=== PATIENT | male | born 1965 | race Caucasian/White ===

== ENCOUNTER 2018-09-26 13:04 | Observation (INO) ==
--- NOTE | 2018-09-26 13:26 | Emergency Department Note ---
Disposition Clinical Impression: Chest pain Disposition: Admitted As Inpatient Condition: Good Referrals: Estevan Petersen MD [Primary Care Provider] - Chest Pain HPI - General Chief Complaint: ED Chest Pain Stated Complaint: chest pain Time Seen by Provider: 09/26/18 13:15 Source: patient, EMS Mode of arrival: ambulatory Limitations: no limitations Vital Signs Reviewed: Yes Nursing Notes Reviewed: Yes - History of Present Illness HPI Narrative: Patient was at a home making arrangements for his best friend and started having hard sharp chest pains in his left chest. Dropped him to his knees. He had 3 of these episodes and then decided come to the hospital. He always has shortness of breath this is no different than normal. The chest pain is something completely that he has not had before. 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 Ramon at [place]. He is currently resting pain-free. 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 Denies: nausea, vomiting, syncope, palpitations - Related Data Home Medications Medication Instructions Recorded Confirmed Atorvastatin Calcium [Lipitor] 80 mg PO DAILY 03/11/18 09/24/18 Gabapentin [Neurontin] 300 mg PO HS 03/11/18 09/24/18 Metoprolol Succinate [Toprol Xl] 100 mg PO DAILY 03/11/18 09/24/18 raNITIdine HCl [Zantac] 150 mg PO BID 03/11/18 09/24/18 Modafinil [Provigil] 200 mg PO DAILY 09/01/18 09/24/18 Fluticasone/Salmeterol [Advair Hfa 12 gm IH BID 09/24/18 09/24/18 115-21 Mcg Inhaler] Sildenafil Citrate [Revatio] 20 mg PO 09/24/18 Dextroamphetamine/Amphetamine 10 mg PO BID 09/26/18 09/26/18 [Dextroamp-Amphetamin 10 mg Tab] Losartan/Hydrochlorothiazide 1 each PO BID 09/26/18 09/26/18 [Losartan-Hctz 50-12.5 mg Tab] Previous Rx's Medication Instructions Recorded Cyclobenzaprine [Flexeril] 10 mg PO TID PRN #15 tablet 11/25/15 Naproxen [Naprosyn] 500 mg PO BID PRN #15 tablet 01/03/17 Allergies Allergy/AdvReac Type Severity Reaction Status Date / Time No Known Allergies Allergy Verified 11/25/15 00:04 All systems ED: reviewed and negative except as stated. Review of Systems: As Per HPI Constitutional: Denies: fever, chills, weakness, weight change Eyes: Denies: eye pain, eye discharge, vision change ENT ED: Denies: ear pain, throat pain, dental pain, hearing loss, epistaxis, congestion, dysphagia Cardiovascular: Reports: as per HPI, chest pain Respiratory: Reports: as per HPI, dyspnea. Denies: cough, wheezes, hemoptysis, stridor Gastrointestinal: Denies: abdominal pain, nausea, vomiting, diarrhea, constipation, hematemesis, melena, hematochezia Genitourinary: Denies: urgency, dysuria, frequency, hematuria Musculoskeletal: Denies: back pain, neck pain, arthralgia, myalgia Integumentary: Denies: rash, abrasion, lesions Neurological: Denies: headache, weakness, numbness, paresthesias, confusion, abnormal gait, vertigo Psychiatric: Denies: anxiety, depression, suicidal thoughts, homicidal thoughts, auditory hallucinations, visual hallucinations Endocrine: Denies: fatigue Hematological/Lymphatic: Denies: easy bleeding, easy bruising Allergic/Immunologic: Denies: facial swelling, urticaria Chest Pain PMH - Past Medical History Medical history: Reports: asthma, COPD, GERD, hyperlipidemia, hypertension Psychiatric history: Reports: anxiety, depression - Social History Smoking Status: Former smoker Alcohol use: Reports: rarely Drug use: Reports: none Physical Exam - General Limitations: no limitations General appearance: alert, in no apparent distress - Head Head exam: atraumatic, normocephalic, normal inspection - Eye Eye exam: Present: normal appearance, PERRL, EOMI - ENT ENT exam: normal exam, normal oropharynx, mucous membranes moist - Neck Neck exam: Present: normal inspection, full ROM, trachea midline - Chest Chest inspection: Present: normal inspection, symmetric chest wall rise - Respiratory Respiratory exam: Present: normal lung sounds bilaterally - Cardiovascular Cardiovascular exam: Present: regular rate, normal rhythm, normal heart sounds - Abdominal Exam Abdominal exam: Present: soft, Non-Tender, normal bowel sounds - Extremities Exam Extremities exam: Present: normal inspection, full ROM. Absent: tenderness, pedal edema - Back Exam Back exam: Present: normal inspection, full ROM. Absent: tenderness - Neurological Exam Neurological exam: Present: alert, oriented X3 - Psychiatric Psychiatric exam: Present: normal affect, normal mood - Skin Skin exam: Present: warm, dry, intact Course Vital Signs Temperature 98.2 F 09/26/18 13:08 Pulse Rate 100 09/26/18 13:08 Respiratory Rate 16 09/26/18 13:08 Blood Pressure 121/82 09/26/18 13:08 O2 Sat by Pulse Oximetry 97 09/26/18 13:08 Temperature 98.2 F 09/26/18 13:08 Pulse Rate 100 09/26/18 13:08 Respiratory Rate 16 09/26/18 13:08 Blood Pressure 121/82 09/26/18 13:08 O2 Sat by Pulse Oximetry 97 09/26/18 13:08 Oxygen Delivery Oxygen Delivery Room Air Chest Pain - MDM Narrative Medical decision making narrative: I reviewed the patient's medication list Case was discussed with Dr. Contreras who has graciously accepted admission of the patient. - Lab Data Lab results reviewed: Yes I reviewed the patient's lab results. - Radiology Data Radiology results reviewed: Yes I reviewed the patient's radiology results. - EKG Data EKG attestation: Yes I reviewed and interpreted this EKG. EKG results narrative: EKG shows a sinus rhythm with rate of 99 bpm. TN interval 155 ms. QS duration 80 ms QT and QTC intervals 344 and 4 and 42 ms respectively. QRS duration is 70 degrees. There is no acute ischemic changes appreciated.
[2018-09-26 13:38] LABS: Basophils % 0.1 %; Eosinophils % 0.6 %; Hematocrit 40.8 % (37.5-50.1); Hemoglobin 13.5 g/dL (12.9-16.9); Immature Granulocytes % 0.4 % (0-4); Lymphocytes # 1.8 K/mcL (0.6-4.6); Lymphocytes % 25.1 %; Mean Corpuscular HGB Conc 33.1 g/dL (31.6-35.5); Mean Corpuscular Hemoglobin 29.5 pg (28.0-33.3); Mean Corpuscular Volume 89.1 fL (83.0-100.0); Mean Platelet Volume 9.4 fL (9.4-12.4); Monocytes # 0.6 K/mcL (0.0-1.3); Monocytes % 8.5 %; Neutrophils # 4.7 K/mcL (1.6-8.9); Platelet Count 329 K/mcL (140-400); Red Blood Count 4.58 M/mcL (4.19-5.50); Red Cell Distribution Width 12.4 % (11.5-14.5); Segmented Neutrophils % 65.3 %
[2018-09-26 13:43] LABS: INR 1.1; Prothrombin Time 12.1 Seconds (9.4-12.1)
[2018-09-26 13:46] LABS: Activated Partial Thrombo Time 32.8 Seconds (26.0-36.0)
[2018-09-26 13:54] LABS: BUN/Creatinine Ratio 14 (6-26); Blood Urea Nitrogen 13 mg/dL (6-20); Calcium 8.9 mg/dL (8.6-10.3); Carbon Dioxide 27 mEq/L (23-29); Chloride 102 mEq/L (98-107); Glucose 102 mg/dL (70-105); Osmolality,Calculated 282 (280-300); Potassium 3.7 mEq/L (3.5-5.1); Sodium 136 mEq/L (136-145); Troponin I < 0.03 ng/mL (< 0.04); eGFR For Non-African Americans > 60 (> 60)
[2018-09-26] MEDS ORDERED: Naloxone 0.4 MG/ML INJ IVP PRN (15:08)
[2018-09-26] MEDS ORDERED: 0.9 % Sodium Chloride 1,000 ML IVC SCH (15:08)
[2018-09-26] MEDS: DEXTROAMPHETAMINE PO SCH (15:56)
[2018-09-26] MEDS: AMPHETAMINE PO SCH (15:56)
[2018-09-26] MEDS ORDERED: Budesonide/Formoterol 80/4.5 MDI IH ONE (19:15)
[2018-09-26] MEDS: Budesonide/Formoterol 80/4.5 MDI IH SCH (19:36)
[2018-09-26] MEDS: Famotidine 20 MG TABLET PO SCH (20:40)
[2018-09-26] MEDS: Losartan/HCTZ 50-12.5 TABLET PO SCH (20:40)
[2018-09-26] MEDS ORDERED: Gabapentin 300 MG CAPSULE PO SCH (21:00)
[2018-09-27 03:16] LABS: Basophils % 0.5 %; Eosinophils # 0.1 K/mcL (0.0-0.6); Eosinophils % 1.8 %; Hemoglobin 13.4 g/dL (12.9-16.9); Immature Granulocytes % 0.3 % (0-4); Lymphocytes # 2.1 K/mcL (0.6-4.6); Lymphocytes % 34.4 %; Mean Corpuscular HGB Conc 32.7 g/dL (31.6-35.5); Mean Corpuscular Hemoglobin 29.5 pg (28.0-33.3); Mean Corpuscular Volume 90.1 fL (83.0-100.0); Mean Platelet Volume 9.1 fL (9.4-12.4); Monocytes # 0.6 K/mcL (0.0-1.3); Monocytes % 9.7 %; Neutrophils # 3.3 K/mcL (1.6-8.9); Platelet Count 329 K/mcL (140-400); Red Blood Count 4.55 M/mcL (4.19-5.50); Red Cell Distribution Width 12.5 % (11.5-14.5); Segmented Neutrophils % 53.3 %
[2018-09-27 03:32] LABS: BUN/Creatinine Ratio 14 (6-26); Blood Urea Nitrogen 15 mg/dL (6-20); Calcium 9.2 mg/dL (8.6-10.3); Carbon Dioxide 29 mEq/L (23-29); Chloride 100 mEq/L (98-107); Glucose 114 mg/dL (70-105); Osmolality,Calculated 286 (280-300); Potassium 4.2 mEq/L (3.5-5.1); Sodium 137 mEq/L (136-145); eGFR For Non-African Americans > 60 (> 60)
[2018-09-27 05:40] VITALS: BP 122/80
[2018-09-27] MEDS ORDERED: Metoprolol XL (24 HR) Succ 50 MG TAB.ER.24H PO SCH (09:00)
[2018-09-27] MEDS: AMPHETAMINE PO SCH (09:45)
[2018-09-27] MEDS: DEXTROAMPHETAMINE PO SCH (09:45)
[2018-09-27] MEDS: Famotidine 20 MG TABLET PO SCH (09:54)
[2018-09-27] MEDS: Losartan/HCTZ 50-12.5 TABLET PO SCH (09:54)
[2018-09-27] MEDS: Budesonide/Formoterol 80/4.5 MDI IH SCH (09:54)
--- NOTE | 2018-09-27 12:19 | Internal Med History&Physical ---
Date of Encounter: 09/27/18 Time of Encounter: 12:17 Assessment and Plan (1) Chest pain Current visit: Yes Status: Acute Patient does have history of cardiovascular disease. Will admit patient for observation and serial troponin and telemetry monitoring. We will continue his cardiac medications. Including statin and beta perfecto. 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 Qualifiers: Chest pain type: chest pain due to myocardial ischemia Ischemic chest pain type: unspecified angina pectoris type Qualified Code(s): I25.9 - Chronic ischemic heart disease, unspecified Internal Medicine - H&P: HPI Chief complaint: chest pain Admitted From: Home History of present illness: Mr. Ann is a 53 year old male who was admitted through emergency department with transient sharp substernal chest pain. He reported 3 episodes of this. He was under stress having both his ex- and his friend recently and he was making arrangements. He also drinks a lot of Pepsi and states he had a lot of caffeine . He currently denies chest pain or diaphoresis there was no nausea or vomiting. He does have a cardiovascular history including what he tells me is medically managed coronary disease and he does follow with cardiology. He states that he has had high blood pressure for some time. He has been on a statin and beta perfecto as an outpatient. His initial troponin in the ED was negative. He denies headache. He admits to poor eating habits discussed Physical Exam - General Limitations: no limitations General appearance: alert, in no apparent distress talkative Multiple multicolored tattoos - Head Head exam: atraumatic, normocephalic, normal inspection - Eye Eye exam: Present: normal appearance, PERRL, EOMI - ENT ENT exam: normal exam, normal oropharynx, mucous membranes moist - Neck Neck exam: Present: normal inspection, full ROM, trachea midline - Chest Chest inspection: Present: normal inspection, symmetric chest wall rise - Respiratory Respiratory exam: Present: normal lung sounds bilaterally - Cardiovascular Cardiovascular exam: Present: regular rate, normal rhythm, normal heart sounds - Abdominal Exam Abdominal exam: Present: soft, Non-Tender, normal bowel sounds - Extremities Exam Extremities exam: Present: normal inspection, full ROM. Absent: tenderness, pedal edema - Back Exam Back exam: Present: normal inspection, full ROM. Absent: tenderness - Neurological Exam Neurological exam: Present: alert, oriented X3 - Psychiatric Psychiatric exam: Present: normal affect, normal mood - Skin Skin exam: Present: warm, dry, intact Past Med Surg Social Fam HX - Past Medical History Medical history: asthma, COPD, GERD, hyperlipidemia, hypertension Additional medical history: buldging disc, sleep apnea Psychiatric history: anxiety, depression - Social History Smoking Status: Former smoker Smokeless Tobacco Status: No Alcohol use: rarely Drug use: none Internal Medicine - H&P: Meds Cyclobenzaprine [Flexeril] 10 mg PO TID PRN #15 tablet 11/25/15 [Rx] Naproxen [Naprosyn] 500 mg PO BID PRN #15 tablet 01/03/17 [Rx] Atorvastatin Calcium [Lipitor] 80 mg PO DAILY 03/11/18 [History] Gabapentin [Neurontin] 300 mg PO HS 03/11/18 [History] Metoprolol Succinate [Toprol Xl] 100 mg PO DAILY 03/11/18 [History] raNITIdine HCl [Zantac] 150 mg PO BID 03/11/18 [History] Modafinil [Provigil] 200 mg PO DAILY 09/01/18 [History] Fluticasone/Salmeterol [Advair Hfa 115-21 Mcg Inhaler] 12 gm IH BID 09/24/18 [History] Sildenafil Citrate [Revatio] 100 mg PO PRN PRN 09/24/18 [History] Dextroamphetamine/Amphetamine [Dextroamp-Amphetamin 10 mg Tab] 10 mg PO BID 09/26/18 [History] Losartan/Hydrochlorothiazide [Losartan-Hctz 50-12.5 mg Tab] 1 each PO BID 09/26/18 [History] Allergy/AdvReac Type Severity Reaction Status Date / Time No Known Allergies Allergy Verified 11/25/15 00:04 All Systems PM: A 10-system review of systems was performed and is negative for pertinent findings except as documented above in the HPI. - Constitutional Vitals: Temp Pulse Resp BP Pulse Ox 97.6 F 86 17 122/80 99 09/27/18 05:39 09/27/18 05:39 09/27/18 05:39 09/27/18 05:39 09/27/18 05:39 Internal Med - H&P Results - Labs CBC & Chem 7: 09/27/18 03:11 09/27/18 03:11 Labs: Short CBC 09/26/18 09/27/18 Range/Units 13:29 03:11 WBC 7.1 6.1 (4.3-11.1) K/mcL Hgb 13.5 13.4 (12.9-16.9) g/dL Hct 40.8 41.0 (37.5-50.1) % Plt Count 329 329 (140-400) K/mcL Neutrophils # 4.7 3.3 (1.6-8.9) K/mcL BMP 09/26/18 09/27/18 13:29 03:11 Sodium 136 137 Potassium 3.7 4.2 Chloride 102 100 Carbon Dioxide 27 29 BUN 13 15 Creatinine 0.96 1.09 Glucose 102 114 H Calcium 8.9 9.2 Cardiac Enzymes 09/26/18 09/26/18 09/26/18 Range/Units 13:29 16:05 21:01 Troponin I < 0.03 < 0.03 < 0.03 (< 0.04) ng/mL 09/27/18 Range/Units 03:11 Troponin I < 0.03 (< 0.04) ng/mL - Impressions ITS Impressions Chest X-Ray 09/26/18 13:14 IMPRESSION: No acute process. D/ / Rocael Carr MD / Rocael Carr MD Interpreting Provider: Rocael Carr MD
--- NOTE | 2018-09-27 12:29 | Discharge Summary ---
- NOTES TO OUTPATIENT PROVIDER Notes to Outpatient Provider: Patient advised to see cardiology's appointment is tomorrow. He is advised to get cardiac stress testing or further cardiac evaluations as directed by cardiology. He is advised to maintain compliance with medications including statin and beta perfecto. Advised to reduce caffeine or other cardiac irritants. He was given a work note to be off work until cleared by cardiology. Orders not resulted at time of discharge: Pending orders 09/26/18 13:14 ECG 12 lead ECG [ECG] Stat 09/27/18 06:00 ECG 12 lead ECG [ECG] AM 0600 Date of Encounter: 09/27/18 Time of Encounter: 12:27 - Discharge Diagnosis (1) Chest pain Priority: Primary Status: Acute Comments: n Qualifiers: Ischemic chest pain type: unspecified angina pectoris type Qualified Code(s): I25.9 - Chronic ischemic heart disease, unspecified Hospital course: Mr. Ann is a 53 year old male who was admitted yesterday for observation after having angina type chest pain while under stress. He was monitored on telemetry with no significant arrhythmia noted. He had no recurrence of chest pain. He did admit that his blood pressure had been high in the recent past, noting that he had the flu and gone in and had his blood pressure checked. Discussed with patient avoiding foods drinks her medications that may aggravate his blood pressure. Patient does tend to drink a lot of caffeinated soda. Serial troponin done negative EKG no change, patient has history of medically managed coronary disease and does follow with cardiology. Patient does have appointment with cardiology coming up tomorrow. Patient discharged in stable condition Discharge discussed with: patient Time spent discussing smoking cessation with patient: 3 to 10 minutes - Time Spent with Patient Total time spent providing and/or coordinating discharge services: Time spent: Less than 30 minutes - Discharge Medications Prescriptions: No Action Cyclobenzaprine [Flexeril] 10 mg PO TID PRN #15 tablet PRN Reason: Muscle Spasm Naproxen [Naprosyn] 500 mg PO BID PRN #15 tablet PRN Reason: Pain Gabapentin [Neurontin] 300 mg PO HS Metoprolol Succinate [Toprol Xl] 100 mg PO DAILY Atorvastatin Calcium [Lipitor] 80 mg PO DAILY raNITIdine HCl [Zantac] 150 mg PO BID Modafinil [Provigil] 200 mg PO DAILY Sildenafil Citrate [Revatio] 100 mg PO PRN PRN PRN Reason: Erectile Dysfunction Fluticasone/Salmeterol [Advair Hfa 115-21 Mcg Inhaler] 12 gm IH BID Dextroamphetamine/Amphetamine [Dextroamp-Amphetamin 10 mg Tab] 10 mg PO BID Losartan/Hydrochlorothiazide [Losartan-Hctz 50-12.5 mg Tab] 1 each PO BID Home Medications: Cyclobenzaprine [Flexeril] 10 mg PO TID PRN #15 tablet 11/25/15 [Rx] Naproxen [Naprosyn] 500 mg PO BID PRN #15 tablet 01/03/17 [Rx] Atorvastatin Calcium [Lipitor] 80 mg PO DAILY 03/11/18 [History] Gabapentin [Neurontin] 300 mg PO HS 03/11/18 [History] Metoprolol Succinate [Toprol Xl] 100 mg PO DAILY 03/11/18 [History] raNITIdine HCl [Zantac] 150 mg PO BID 03/11/18 [History] Modafinil [Provigil] 200 mg PO DAILY 09/01/18 [History] Fluticasone/Salmeterol [Advair Hfa 115-21 Mcg Inhaler] 12 gm IH BID 09/24/18 [History] Sildenafil Citrate [Revatio] 100 mg PO PRN PRN 09/24/18 [History] Dextroamphetamine/Amphetamine [Dextroamp-Amphetamin 10 mg Tab] 10 mg PO BID 09/26/18 [History] Losartan/Hydrochlorothiazide [Losartan-Hctz 50-12.5 mg Tab] 1 each PO BID 09/26/18 [History] Allergies/Adverse Reactions: Allergy/AdvReac Type Severity Reaction Status Date / Time No Known Allergies Allergy Verified 11/25/15 00:04 Date of admission: 09/26/18 15:09 Primary care physician: Estevan Petersen MD Anticipated date of discharge: 09/27/18 - Constitutional Vitals: Temp Pulse Resp BP Pulse Ox 97.6 F 86 17 122/80 99 09/27/18 05:39 09/27/18 05:39 09/27/18 05:39 09/27/18 05:39 09/27/18 05:39 - Patient Status Disposition: Home, Self-Care Condition: Good Overall status at discharge: patient is back to baseline - Discharge Instructions Follow Up With: Homero Ramon MD [Partnered Physician] - 09/28/18 11:00 am Estevan Petersen MD [Primary Care Provider] -
--- NOTE | 2018-09-30 12:40 | Electrocardiograph Report ---
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
== END 2018-09-27 12:51 | disposition home or self-care (01) ==
LOC: INPGRE 13:04 → EMEROOGRE 13:04 → INPGRE 15:16
PROVIDERS: ADMIT Internal Medicine; ATTEND Internal Medicine